=== PATIENT | female | born 1960 | race Caucasian/White ===

== ENCOUNTER 2016-10-04 17:27 | Emergency (ER) | payer SELFPAY ==
[~2016-10-04] VITALS: Ht 170.2 cm; Wt 84.0 kg
--- OUTSIDE RECORDS SUMMARY | 2016-10-04 17:40 | XMS REPORT | Continuity of Care Document ---
Author Author Organization Address Unknown Phone Unavailable Support Name Relationship Address Phone JOSE EDUARDO GOLDSMITH APRN Caregiver [address] [place] [address] Unavailable HECTOR ZARATE MD Caregiver [address] [place] [address] Unavailable YVES BERGERON Next Of Kin [address] [place] [address] C Insurance Providers Guarantor Mari Bergeron Address [address] [place] [address] C Email [email or web address] Payer Self Pay Subscriber's Name Mari Bergeron Relationship 18 Self Advance Directives Directive Response Recorded Date/Time Ordered Resuscitation Status Full Code 08/13/16 11:20am Resuscitation Documents on File Yes 08/14/16 6:40am DPOA for Healthcare Only Yes 08/14/16 6:40am Living Will Yes 08/14/16 6:40am Problems Active Problems Medical Problem Onset Date Status Coronary artery disease Unknown Chronic Dysfunctional uterine bleeding Unknown Acute Mixed hyperlipidemia Unknown Chronic Type 2 diabetes mellitus without complications Unknown Chronic Type 2 diabetes, diet controlled Unknown Unstable angina Unknown Acute Surgical Problem Onset Date Status Status post laparoscopic hysterectomy Unknown Past Problems Medical Problem Onset Date Chest pain, rule out acute myocardial infarction Unknown Medications Current Home Medications Medication Dose Units Route Directions Days Qty Instructions Start Date Albuterol Sulfate (Proair Hfa 90 Mcg/Actuation) 8.5 Gm Hfa.aer.ad 2 Puff Inhalation Every 4 Hours as needed for Asthma 08/14/16 Docusate Sodium (Stool Softener) 100 Mg Tablet 1 Tab Oral Twice A Day 08/13/16 Hydrocodone/Acetaminophen (Hydrocodon-Acetaminoph 7.5-325) 7.5-325 Tablet 1-2 Tab Oral Every 4 Hours as needed for Pain 40 Tablet 08/15/16 Ibuprofen 800 Mg Tablet 800 Mg Oral Every 8 Hours as needed for Pain 30 Tablet 08/15/16 Pnv95/Ferrous Fumarate/Fa ( Tablet) 1 Each Tablet 1 Tab Oral Daily 08/13/16 Past Home Medications Medication Directions Ordered Status Acetaminophen (Tylenol) 325 Mg Tablet, 2 Tab Oral As Needed for Pain Discontinued Ferrous Gluconate 324 Mg Tablet, 324 Mg Oral Twice Daily With Meals 07/16/16 Discontinued Social History Social History Problem Response Recorded Date/Time Onset Date Status Reason for Hospitalization Hysterectomy 08/15/2016 8:59am Not Applicable Not Applicable Chewing Tobacco Status No 08/14/2016 6:15am Not Applicable Not Applicable Hx Substance Use No 08/14/2016 6:15am Not Applicable Not Applicable Hx Alcohol Use Y MONTHLY 08/14/2016 6:15am Not Applicable Not Applicable Has the pt used tobacco in the last 12 months Yes 08/14/2016 6:15am Not Applicable Not Applicable Tobacco Usage smoke 10/20/2015 4:53pm Not Applicable Not Applicable Query Response Start Date Stop Date Smoking Status Current every day smoker Hospital Discharge Instructions Instructions: Care Instructions: I was in the hospital because (patient own words): hysterectomy Discharge Diet: Regular Diet as Tolerated Discharge Activity: See Hyst. Instruction Sheet Follow Up Appointments: Dr. Zarate in 1-2 weeks as scheduled Pending Lab / Results: Will review at f/u apt Expected Signs/Symptoms: See Hyst. Instruction Sheet Notify Physician If: See Hyst. 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 Instruction Sheet Condition at time of discharge: Good Plan of Care Discharge Date 08/15/16 12:46pm Instructions/Education Provided Laparoscopic Hysterectomy (DC) Prescriptions See Medication Section Functional Status Query Response Date Recorded Mobility Status Ambulatory August 14, 2016 5:34pm Assistive Devices None August 14, 2016 5:34pm Activity Limitations Pain August 14, 2016 5:34pm Feeding Ability Independent August 14, 2016 5:34pm Toileting Ability Independent August 14, 2016 5:34pm Grooming Ability Independent August 14, 2016 5:34pm Dressing Ability Independent August 14, 2016 5:34pm Driving Ability Assist August 14, 2016 5:34pm Housework Ability Assist August 14, 2016 5:34pm Meal Preparation Ability Assist August 14, 2016 5:34pm Stair Climbing Ability Assist August 14, 2016 5:34pm Ability to complete ADL's impeded by No change August 14, 2016 5:34pm Cognitive/Perceptual Impairments Impaired vision August 14, 2016 5:34pm Visual Assistive Devices Glasses August 14, 2016 5:34pm Preferred Method of Learning Reading Demonstration August 14, 2016 5:34pm Allergies, Adverse Reactions, Alerts No known allergies. Immunizations Query Response on File Recorded Date/Time Hx Influenza Vaccination Y fall 201508/14/16 6:15am Hx Pneumococcal Vaccination Y 201108/14/16 6:15am Hx Influenza Vaccination Y fall 201508/14/16 6:15am Influenza Vaccine Hx MAR 2016 07/16/16 10:59am Vital Signs Acute Vital Signs Vital Response Date/Time Temperature (Fahrenheit) 98.1 deg F (96.8 - 99.1) 08/15/2016 8:00am Temperature (Calculated Celsius) 36.86597 degrees C (36.0 - 37.3) 08/15/2016 8:00am Temperature Source Oral 08/15/2016 8:00am Pulse Rate (adult) 71 bpm (60 - 100) 08/15/2016 8:00am Respiratory Rate 16 breaths/min (10 - 20) 08/15/2016 8:00am O2 Sat by Pulse Oximetry 96 % (90 - 100) 08/15/2016 8:00am Oxygen Delivery Method Room Air 08/15/2016 8:00am Oxygen Delivery Method Nasal Cannula 08/14/2016 12:55pm Oxygen Flow Rate 1.00 L/min 08/14/2016 3:17pm Blood Pressure 119/69 mm Hg 08/15/2016 8:00am Blood Pressure Source Automatic Cuff 08/15/2016 8:00am Height (Feet) 5 feet 08/14/2016 5:56am Height (Inches) 3.00 inches 08/14/2016 5:56am Weight (Kilograms) 89.800 kg 08/15/2016 8:00am Body Mass Index (BMI) 33.9 08/14/2016 5:56am Results Laboratory Results Test Name Result Units Flags Reference Collection Date/Time Result Date/ Time Comments RDW Standard Deviation 45.8 FL 36.9-50.2 07/15/2016 8:38pm 07/15/2016 8 :57pm Prothromb Time International Ratio 1.03 0.76-1.04 07/15/2016 8:38pm 07/15/2016 9:12pm THERAPUTIC RANGE=2.00-3.00 FOR ANTI-THROMBOSIS THERAPUTIC RANGE=2.50-3.50 FOR IMPLANTED VALVE D-Dimer < 150 NG/ML 0-230 07/15/2016 8:38pm 07/15/2016 9:12pm <230 NG/ ML D-DU=PRESUMPTIVE NEGATIVE FOR PE OR DVT >230 NG/ML D-DU=ADDITIONAL EVAL FOR PE OR DVT RECOMMENDED Troponin I 0.089 ng/ml D 0-0.12 07/16/2016 4:52pm 07/16/2016 6:26pm Troponin values with a difference of 55% increase from orginal troponin value represent a true biological DELTA value. (%increase Calc=Orginal Troponin value, divided by subsequent Troponin value, multiplied by 100) WA-Kfo-O-Type Natriuretic Peptide 139 PG/ML 0-175 07/15/2016 8:38pm 11/2016 9:09pm Rule in cut points: <50 years old=450; 50-75 years old=900; >75 years old=1800; When utilizing ProBNP rule-in cut points, adjustment for impaired renal function is typically not required. Magnesium Level 2.0 MG/DL 1.6-2.3 07/15/2016 8:38pm 07/15/2016 8:57pm Iron Level 20 UG/DL L 37-170 07/16/2016 4:52pm 07/17/2016 1:29am Total Iron Binding Capacity 477 UG/DL 261-497 07/16/2016 4:52pm 2016 12:52am Percent Iron Saturation 4 % L 9-55 07/16/2016 4:52pm 07/17/2016 1:29am Vitamin B12 Level 460 PG/ML 239-931 07/16/2016 4:52pm 07/17/2016 4: 06am White Blood Count 6.7 T/MM3 4.5-11.0 08/14/2016 6:06am 08/14/2016 7: 11am Red Blood Count 5.66 M/MM3 H 4.00-5.20 08/14/2016 6:06am 08/14/2016 7: 11am Hemoglobin 13.6 GM/DL 12-16 08/14/2016 4:16pm 08/14/2016 4:44pm Hematocrit 44.2 % 36-46 08/14/2016 4:16pm 08/14/2016 4:44pm Mean Corpuscular Volume 76.0 UM3 L 80-100 08/14/2016 6:06am 08/14/2016 7 :11am Mean Corpuscular Hemoglobin 23.7 UUG L 26-34 08/14/2016 6:06am 2016 7:11am Mean Corpuscular Hemoglobin Concent 31.2 GM/DL 31-37 08/14/2016 6:06am 08/14/2016 7:11am Platelet Count 209 T/MM3 130-400 08/14/2016 6:0608/14/2016 7:11am Mean Platelet Volume 9.5 UM3 9.4-12.4 08/14/2016 6:06am 08/14/2016 7: 11am Neutrophils % (Manual) 68.0 % H 33-66 08/14/2016 6:06am 08/14/2016 7: 16am Band Neutrophils % 1.0 % 0-6 08/14/2016 6:06am 08/14/2016 7:16am Lymphocytes % (Manual) 24.0 % 23-45 08/14/2016 6:06am 08/14/2016 7: 16am Monocytes % (Manual) 5.0 % 0-9.0 08/14/2016 6:06am 08/14/2016 7:16am Eosinophils % (Manual) 2.0 % 0-4 08/14/2016 6:06am 08/14/2016 7:16am Band Neutrophils # 0.1 T/MM3 08/14/2016 6:06am 08/14/2016 7:16am Absolute Neutrophils (Manual) 4.6 T/MM3 1.8-7.7 08/14/2016 6:06am 08/14 7:16am Lymphocytes # (Manual) 1.6 T/MM3 1-4.8 08/14/2016 6:06am 08/14/2016 7: 16am Monocytes # (Manual) 0.3 T/MM3 0-0.8 08/14/2016 6:06am 08/14/2016 7: 16am Eosinophils # (Manual) 0.1 T/MM3 0-0.5 08/14/2016 6:06am 08/14/2016 7: 16am Red Cell Morphology Comment ABNORMAL 08/14/2016 6:0608/14/2016 7 :16am Anisocytosis 3+ 08/14/2016 6:0608/14/2016 7:16am Icterus Index < 2 0-7 08/14/2016 6:0608/14/2016 6:38am Chemistry Specimen Hemolysis < 15 0-25 08/14/2016 6:0608/14/2016 6 :38am 0-25: Specimen Exhibited No Hemolysis. Turbidity < 20 0-20 08/14/2016 6:0608/14/2016 6:38am Sodium Level 149 MEQ/L H 134-144 08/14/2016 6:06am 08/14/2016 6:38am Potassium Level 3.7 MEQ/L 3.6-5 08/14/2016 6:06am 08/14/2016 6:38am Chloride Level 111 MEQ/L H 98-107 08/14/2016 6:06am 08/14/2016 6:38am Carbon Dioxide Level 25 MEQ/L 22-30 08/14/2016 6:06am 08/14/2016 6: 38am Anion Gap 13 MEQ/L 5-15 08/14/2016 6:0608/14/2016 6:38am Blood Urea Nitrogen 9.0 MG/DL 7-17 08/14/2016 6:0608/14/2016 6:38am Creatinine 0.6 MG/DL L 0.7-1.2 08/14/2016 6:0608/14/2016 6:38am BUN/Creatinine Ratio 15 RATIO 6-26 08/14/2016 6:06am 08/14/2016 6:38am Glomerular Filtration Rate Calc 103 08/14/2016 6:0608/14/2016 6: 38am Glucose Level 132 MG/DL H 65-110 08/14/2016 6:0608/14/2016 6:38am Calculated Osmolality 287 MOSM/KG H 261-280 08/14/2016 6:2016 6:38am Calcium Level 9.1 MG/DL 8.4-10.2 08/14/2016 6:0608/14/2016 6:38am Total Bilirubin 0.70 MG/DL 0.20-1.30 08/14/2016 6:06am 08/14/2016 6: 38am Alkaline Phosphatase 85 U/L 38-126 08/14/2016 6:06am 08/14/2016 6:38am Total Protein 7.4 G/DL 6.3-8.2 08/14/2016 6:06am 08/14/2016 6:38am Albumin 4.2 G/DL 3.5-5.0 08/14/2016 6:06am 08/14/2016 6:38am Globulin 3.2 G/DL 2.4-3.6 08/14/2016 6:06am 08/14/2016 6:38am Albumin/Globulin Ratio 1.3 RATIO 1.1-2.2 08/14/2016 6:06am 08/14/2016 6 :38am Aspartate Amino Transf (AST/SGOT) 65 U/L H 14-36 08/14/2016 6:06am 08/14 6:38am Alanine Aminotransferase (ALT/SGPT) 76 U/L H 9-52 08/14/2016 6:06am 01/2017 6:38am Urine Collection Type CLEANCATCH-MIDSTREAM 08/14/2016 5:54am 2016 6:29am Urine Color YELLOW YELLOW 08/14/2016 5:54am 08/14/2016 6:29am Urine Turbidity CLEAR CLEAR 08/14/2016 5:54am 08/14/2016 6:29am Urine Specific [place] 1.015 1.015-1.025 08/14/2016 5:54am 2016 6:29am Urine pH 5.5 5.0-8.0 08/14/2016 5:54am 08/14/2016 6:29am Urine Leukocyte Esterase NEGATIVE NEGATIVE 08/14/2016 5:54am 2016 6:29am Urine Nitrite NEGATIVE NEGATIVE 08/14/2016 5:54am 08/14/2016 6:29am Urine Protein NEGATIVE NEGATIVE 08/14/2016 5:54am 08/14/2016 6:29am Urine Glucose (UA) NEGATIVE NEGATIVE 08/14/2016 5:54am 08/14/2016 6: 29am Urine Ketones NEGATIVE NEGATIVE 08/14/2016 5:54am 08/14/2016 6:29am Urine Urobilinogen 0.2 EU/DL NORMAL 08/14/2016 5:54am 08/14/2016 6: 29am Urine Bilirubin NEGATIVE NEGATIVE 08/14/2016 5:54am 08/14/2016 6: 29am Urine Blood 2+ A NEGATIVE 08/14/2016 5:54am 08/14/2016 6:29am Urine WBC 1-3 /HPF 0-5 08/14/2016 5:54am 08/14/2016 7:02am Urine RBC 1-3 /HPF 0-3 08/14/2016 5:54am 08/14/2016 7:02am Urine Squamous Epithelial Cells 0-5 08/14/2016 5:54am 08/14/2016 7: 02am Urine Bacteria TRACE H NEGATIVE 08/14/2016 5:54am 08/14/2016 7:02am Urine Culture Indicated CULT NOT INDICATED 08/14/2016 5:54am 2016 7:02am Glucometer 128 mg/dL H 65-110 08/15/2016 10:10am 08/15/2016 10:38am Procedures Procedure Status Date Provider(s) Robot-assisted hysterectomy Completed 08/14/16 HECTOR ZARATE MD Encounters Encounter Location Arrival/Admit Date Discharge/Depart Date Attending Provider Departed [facility] 08/14/16 5:40am 08/15/16 12 :46pm HECTOR ZARATE MD Departed [facility] 07/15/16 9:34pm 07/16/16 8: 50pm DEE DEE CERVANTES MD [facility] 06/27/16 12:27pm JOSE EDUARDO GOLDSMITH APRN
--- NOTE | 2016-10-04 18:13 | Diagnostic Imaging Report ---
PROCEDURE: CT head without contrast. TECHNIQUE: Multiple contiguous axial images were obtained through the brain without the use of intravenous contrast. DATE: October 04, 2016. COMPARISON: None. INDICATION: A 55-year-old female, altered mental status. FINDINGS: There are dependent areas of opacification within the left sphenoid sinus with bubbly internal lucencies. The additional visualized portions of the paranasal sinuses, mastoid air cells, and middle ears are well aerated. The ventricles and cerebral spinal fluid spaces are of normal size and configuration for the patient's age. There is no mass effect or midline shift. There is no acute intracranial hemorrhage. There is no abnormal extra-axial fluid collection. IMPRESSION: 1. No identified acute intracranial abnormality. 2. Dependent opacification within the sphenoid sinus with bubbly areas of internal lucency. Recommend correlation clinically for potential acute sinusitis. Dictated by: Dictated on workstation # [id number]
--- NOTE | 2016-10-04 18:19 | Diagnostic Imaging Report ---
EXAMINATION: Chest radiograph, portable AP view. DATE: 10/04/2016 at 0602 hours. INDICATION: 55-year-old female, altered mental status. COMPARISON: None. FINDINGS: Heart size and mediastinal contours are unremarkable. There is no identified pneumothorax. There is no large pleural effusion. There is no identified focal airspace consolidation. IMPRESSION: No identified acute cardiopulmonary abnormality. Dictated by: Dictated on workstation # [id number]
--- NOTE | 2016-10-04 18:22 | Diagnostic Imaging Report ---
PROCEDURE: CT abdomen and pelvis without contrast. TECHNIQUE: Multiple contiguous axial images were obtained through the abdomen and pelvis without the use of intravenous contrast. DATE: October 04, 2016. COMPARISON: None. INDICATION: 55-year-old female, abdominal pain. Robotic-assisted hysterectomy on August 14, 2016. FINDINGS: There are limitations for assessment of the abdominal organ parenchyma and vasculature relating to the lack of intravenous contrast. The visualized portions of the lungs are clear. There is no identified pleural effusion. The heart is not enlarged. The liver is normal in size and contour. There is a low-attenuation area projecting near the margin of the liver on axial image 9 which correlating with reformatted images most likely relates to partial volume averaging artifact. The gallbladder is not distended. There is no intrahepatic or extrahepatic bile duct dilation. The main pancreatic duct is not abnormally dilated. The pancreatic parenchyma is unremarkable. The spleen is normal in size. The adrenal glands are unremarkable. There is no identified renal or ureteral stone. There is very mild bilateral nonspecific perinephric stranding. The urinary collecting systems are not distended. The urinary bladder is unremarkable in appearance. The uterus is not seen compatible with provided history of hysterectomy. There is a fat-containing umbilical hernia. There is a moderate volume stool throughout the colon. The appendix is best identified on axial image 38 and adjacent sequential images. There is no evidence of acute appendicitis. There is no free intraperitoneal air. There is no drainable fluid collection. There is no free pelvic fluid. There are atherosclerotic calcifications. There is no identified abnormally enlarged lymph node within the abdomen or pelvis which meets CT size criteria for adenopathy. There is no identified acute bony abnormality. There is moderate disc height loss at L4-L5. IMPRESSION: CT ABDOMEN AND PELVIS. 1. No identified acute abnormality within the abdomen or pelvis. 2. Status post hysterectomy. Dictated by: Dictated on workstation # [id number]
[2016-10-04 18:29] LABS: BILIRUBIN,URINE Negative (Negative); CLARITY,URINE Clear; COLOR,URINE Yellow; GLUCOSE, URINE (UA) Negative (Negative); LEUKOCYTE ESTERASE ,URINE Negative (Negative)
[2016-10-04 18:33] LABS: BASOPHILS % (AUTO) 0 % (0-2); EOSINOPHILS # (AUTO) 0.2 10^3uL; EOSINOPHILS % (AUTO) 2 % (0-4); LYMPHOCYTES # (AUTO) 2.2 X10^3; MEAN CORPUSCULAR HGB CONC 32.9 g/dL (31.0-37.0); MEAN CORPUSCULAR VOLUME 80 FL (80-100); MONOCYTES # (AUTO) 0.7 X10^3; MONOCYTES % (AUTO) 7 % (3-11); NEUTROPHILS # (AUTO) 6.5 X10^3; NEUTROPHILS % (AUTO) 68 % (51-67); PLATELET COUNT 220 10^3uL (150-450); WHITE BLOOD COUNT 9.65 10^3uL (4.0-11.0)
[2016-10-04 18:36] LABS: ALBUMIN 4.5 g/dL (3.4-5.0); ALKALINE PHOSPHATASE 137 U/L (38-126); ANION GAP 15.3 MEQ/L (3-15); BUN/CREATININE RATIO 15 (10-20); CALCULATED IONIZED CALCIUM 3.9 mg/dL (3.8-4.6); CREATINE KINASE 57 U/L (30-135); TOTAL PROTEIN 8.1 g/dL (6.4-8.5)
[2016-10-04 18:40] LABS: MEAN CORPUSCULAR HEMOGLOBIN 26.4 PG (26.0-34.0)
--- NOTE | 2016-10-04 19:02 | NUR ---
hospitalist contacted at [facility].
[2016-10-04] MEDS ORDERED: ONDANSETRON 2 MG/ML (Z0FRAN) 2 ML VIAL IV ONE (19:05)
[2016-10-04] MEDS ORDERED: ACETAMINOPHEN 500 MG TAB (TYLENOL) ONE (20:12)
[2016-10-04] MEDS ORDERED: ACETAMINOPHEN 500 MG TAB (TYLENOL) PO ONE (20:15)
[2016-10-04 20:22] VITALS: BP 133/78
== END 2016-10-04 20:26 | disposition short-term general hospital (02) ==
LOC: ED 17:35
DX: R55 Syncope and collapse (principal); F17.210 Nicotine dependence, cigarettes, uncomplicated
CPT/HCPCS: 36415; 51701; 70450; 71010; 74176; 80053; 81003; 82550; 82553; 84443; 84484; 85025; 86140; 93005; 96361; 96374; 99285; J2405; J7030; 93010

== ENCOUNTER → 2016-10-04 | Outpatient (CLI) | payer SELFPAY | LOC: EMS 20:15 | PROVIDERS: ATTEND Hospitalist | DX: R55 Syncope and collapse (principal) ==